=== PATIENT | male | born 1965 | race African-American/Black ===

== ENCOUNTER 2017-01-24 14:15 | Emergency (ER) | payer OTHER ==
[~2017-01-24] VITALS: Ht 175.3 cm; Wt 95.6 kg
[~2017-01-24 14:15] MED LIST: ADDERALL30 MG PO; ALLEGRA60 MG PO; AMBIEN10 MG PO; AMLODIPINE BESYL5 MG PO; BENADRYL50 MG PO; FLEXERIL10 MG PO; GABAPENTIN300 MG PO; LAMICTAL25 MG PO; LAMOTRIGINE150 MG PO; LOSARTAN-HCTZ1 EAC1 PO; MOTRIN600 MG PO; NICOTINE PATCH1 EAC2 TD; OXYCODONE HCL10 MG PO; PREDNISONE20 MG PO; SIMVASTATIN20 MG PO; ZANTAC300 MG PO; ZESTORETIC 20-1 EAC1 PO
[2017-01-24] MEDS ORDERED: MOBIC7.5 MG PO (16:34)
[2017-01-24 17:21] VITALS: BP 129/86
== END 2017-01-24 17:22 | disposition home or self-care (01) ==
LOC: EME 14:15
PROC: 2W3DX1Z Immobilization of Left Lower Arm using Splint (ICD-10-PCS; principal; 2017-01-24)
DX: S63.502A Unspecified sprain of left wrist, initial encounter (principal); X58.XXXA Exposure to other specified factors, initial encounter; F17.200 Nicotine dependence, unspecified, uncomplicated
CPT/HCPCS: 73110; 99281; 99284